=== PATIENT | female | born 1980 | race American Indian/Alaskan Native ===

== ENCOUNTER 2018-08-10 09:35 | Emergency (ER) | payer SELFPAY ==
[2018-08-10 09:47] VITALS: BP 125/79
--- NOTE | 2018-08-10 10:44 | Emergency Department Report ---
Suture/Staple Removal - HPI Chief Complaint: Laceration/Recheck/Suture Stated Complaint: STEVEN REMOVAL Time Seen by Provider: 08/10/18 10:43 When Sutures or [place] Placed: >14 Days Ago Wound Location: left forearm ED Review of Systems ROS: Stated complaint: STEVEN REMOVAL Other details as noted in HPI Comment: All other systems reviewed and negative ED Past Medical Hx - Past Medical History Hx Hypertension: Yes - Surgical History Past Surgical History?: Yes Additional Surgical History: Facial surgery - Social History Smoking Status: Never Smoker Substance Use Type: None - Medications Home Medications: Home Medications Medication Instructions Recorded Confirmed Last Taken Type Ibuprofen [Motrin] 800 mg PO BID PRN 05/02/18 05/02/18 Unknown History hydrOXYzine HCL [Atarax] 1 - 2 tab PO Q4-6H PRN 05/02/18 05/02/18 Unknown History levETIRAcetam [Keppra TAB] 500 mg PO BID #60 tablet 05/02/18 Unknown Rx Suture Removal Exam - Exam General: Vital signs noted. No distress. Alert and acting appropriately. Wound: No Pathologic Erythema, No Tenderness, No Drainage, No Pus, No Wound Dehiscence Other Systems: All other systems reviewed and are unremarkable. ED Course Vital Signs 08/10/18 09:45 Temperature 98.0 F Pulse Rate 78 Respiratory 18 Rate Blood Pressure 125/79 O2 Sat by Pulse 99 Oximetry ED Recheck MDM - Differential Diagnosis Wound Recheck, Suture/Staple Removal Critical care attestation.: If time is entered above; I have spent that time in minutes in the direct care of this critically ill patient, excluding procedure time. ED Disposition Clinical Impression: Removal of staple Disposition: TO HOME OR SELFCARE Is pt being admited?: No Does the pt Need Aspirin: No Condition: Stable Referrals: ALIRIO BRASWELL MD [Primary Care Provider] - as needed Time of Disposition: 10:44
== END 2018-08-10 10:47 | disposition home or self-care (01) ==
LOC: ED 09:35
DX: S51.812D Laceration without foreign body of left forearm, subsequent encounter (principal); I10 Essential (primary) hypertension; W26.8XXD Contact with other sharp object(s), not elsewhere classified, subsequent encounter

== ENCOUNTER 2018-11-20 23:46 | Emergency (ER) | payer SELFPAY ==
[2018-11-21] MEDS ORDERED: FIORICET PO ONE (00:22)
[2018-11-21] MEDS ORDERED: TORADOL IM ONE (00:22)
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
[2018-11-21 02:09] VITALS: BP 160/90
== END 2018-11-21 02:00 | disposition home or self-care (01) ==
LOC: ED 23:46
DX: G44.329 Chronic post-traumatic headache, not intractable (principal); G50.0 Trigeminal neuralgia; I10 Essential (primary) hypertension; Z91.018 Allergy to other foods; Z88.0 Allergy status to penicillin; Z91.030 Bee allergy status; Z91.048 Other nonmedicinal substance allergy status
CPT/HCPCS: 96372; 99282; J1885